=== PATIENT | male | born 1935 | race Caucasian/White ===

== ENCOUNTER 2020-11-03 07:08 | Observation (INO) | payer MEDICARE, OTHER ==
[~2020-11-03] VITALS: Ht 172.7 cm; Wt 61.2 kg
[2020-11-03 08:00] LABS: ABG BASE EXCESS 0.6 mmol/L (-2.0-3.0); ABG HCO3 24.6 mmol/L (21.0-28.0); ABG OXYGEN SATURATION 92.5 % (95.0-99.0); ABG PCO2 38 mmHg (35-48)
[2020-11-03 08:25] LABS: APPEARANCE,URINE Clear (CLEAR); BILIRUBIN,URINE Negative (NEGATIVE); COLOR,URINE Dark Yellow (YELLOW); GLUCOSE, URINE (UA) Negative (NEGATIVE); KETONES,URINE Negative (NEGATIVE); LEUKOCYTE ESTERASE ,URINE Negative (NEGATIVE); NITRATE,URINE Negative (NEGATIVE); OCCULT BLOOD,URINE Negative (NEGATIVE); PROTEIN,URINE 300 mg/dL (NEGATIVE)
[2020-11-03 08:30] LABS: BACTERIA,URINE Rare /HPF (None Seen); RBC,URINE 0-1 /HPF (0-1); SQUAMOUS EPITHELIAL CELL,UR Rare /HPF (0-2); WBC,URINE 0-1 /HPF (0-1)
[2020-11-03 08:42] LABS: BASOPHILS % (AUTO) 0.5 % (0.0-5.0); HEMATOCRIT 43.8 % (42-54); LYMPHOCYTES % (AUTO) 16.4 % (21.0-51.0); MEAN CORPUSCULAR HEMOGLOBIN 30.7 pg (27.0-33.0); MEAN CORPUSCULAR HGB CONC 33.1 g/dL (32.0-36.0); MEAN CORPUSCULAR VOLUME 92.8 fL (79-99); MONOCYTES % (AUTO) 5.7 % (3.0-13.0); NEUTROPHILS % (AUTO) 76.9 % (40.0-77.0); PLATELET COUNT (AUTO) 186 K/uL (130-400); RED BLOOD CELL COUNT(AUTO) 4.72 MIL/uL (4.50-6.20); RED CELL DISTRIBUTION WIDTH 13.2 % (11.0-15.5); WHITE BLOOD COUNT (AUTO) 4.2 K/uL (4.8-10.8)
[2020-11-03 08:54] LABS: INR 1.07 (0.85-1.15); PROTHROMBIN TIME 11.4 SEC (9.6-11.6)
[2020-11-03 08:55] LABS: BILIRUBIN,TOTAL 0.5 mg/dL (0.2-1.0); CREATININE 1.2 mg/dL (0.5-1.5); PARTIAL THROMBOPLASTIN TIME 32.2 SEC (26.3-35.5); POTASSIUM 3.7 mmol/L (3.5-5.1); TOTAL PROTEIN, SERUM 7.3 g/dL (6.0-8.3)
[2020-11-03] MEDS ORDERED: DEXAMETHASONE SOD PHOSPHATE 10MG/ML 1ML VIAL ONE (09:53)
[2020-11-03] MEDS ORDERED: SODIUM CHLORIDE 0.9% 50 ML IV ONE (09:54)
[2020-11-03] MEDS ORDERED: AZITHROMYCIN 500MG+NS 250ML 250 ML IV ONE (09:54)
[2020-11-03] MEDS ORDERED: CEFTRIAXONE SODIUM 1 GM ONE ×2 (09:54→20:58)
[2020-11-03 11:15] LABS: HEMOGLOBIN A1C 5.5 % (4.0-6.0)
[2020-11-03] MEDS ORDERED: ALBUTEROL INHALER 90MCG/INH IH ONE (11:23)
[2020-11-03] MEDS ORDERED: INSULIN HUMULIN R 100 UNIT/ML 3ML SQ SCH (11:30)
[2020-11-03] MEDS ORDERED: CEFTRIAXONE SODIUM 1 GM IVP SCH (20:00)
[2020-11-03] MEDS ORDERED: ENOXAPARIN SODIUM 40 MG/0.4 ML SYRINGE SQ ONE (20:58)
[2020-11-03] MEDS ORDERED: DOXYCYCLINE HYCLATE 100 MG TABLET PO ONE (20:58)
[2020-11-03] MEDS ORDERED: ENOXAPARIN SODIUM 30 MG/0.3 ML SQ SCH (21:00)
[2020-11-03] MEDS ORDERED: ENOXAPARIN SODIUM 0.5 MG/KG EACH SQ SCH (21:00)
[2020-11-03] MEDS ORDERED: DOXYCYCLINE HYCLATE 100 MG TABLET PO SCH (21:00)
[2020-11-04 05:20] LABS: HEMATOCRIT 40.9 % (42-54); MEAN CORPUSCULAR HEMOGLOBIN 30.6 pg (27.0-33.0); MEAN CORPUSCULAR HGB CONC 33.3 g/dL (32.0-36.0); MEAN CORPUSCULAR VOLUME 91.9 fL (79-99); MONOCYTES % (AUTO) 5.7 % (3.0-13.0); NEUTROPHILS % (AUTO) 79.8 % (40.0-77.0); PLATELET COUNT (AUTO) 219 K/uL (130-400); RED BLOOD CELL COUNT(AUTO) 4.45 MIL/uL (4.50-6.20); RED CELL DISTRIBUTION WIDTH 12.9 % (11.0-15.5); WHITE BLOOD COUNT (AUTO) 4.1 K/uL (4.8-10.8)
[2020-11-04 05:45] LABS: ALBUMIN 2.6 g/dL (3.5-5.0); BILIRUBIN,TOTAL 0.3 mg/dL (0.2-1.0); CREATININE 1.1 mg/dL (0.5-1.5); CRP QUANTITATIVE 83.6 mg/L (0.00-9.0); TOTAL PROTEIN, SERUM 6.7 g/dL (6.0-8.3)
[2020-11-04] MEDS ORDERED: ZINC SULFATE 220 CAPSULE PO SCH (09:00)
[2020-11-04] MEDS ORDERED: ASCORBIC ACID 500 MG TAB PO SCH (09:00)
[2020-11-04] MEDS ORDERED: DEXAMETHASONE SOD PHOSPHATE 4 MG/ML 1ML VIAL IVP SCH (09:00)
[2020-11-04] MEDS ORDERED: DOXYCYCLINE HYCLATE 100 MG TABLET PO ONE (09:17)
[2020-11-04] MEDS ORDERED: DEXAMETHASONE SOD PHOSPHATE 10MG/ML 1ML VIAL ONE (09:18)
[2020-11-04] MEDS ORDERED: ASCORBIC ACID 500 MG TAB ONE (09:19)
[2020-11-04] MEDS ORDERED: ZINC SULFATE 220 CAPSULE ONE (09:19)
[2020-11-04] MEDS ORDERED: CEFTRIAXONE SODIUM 1 GM ONE (09:20)
[2020-11-04] MEDS ORDERED: ENOXAPARIN SODIUM 30 MG/0.3 ML SQ ONE (09:20)
[2020-11-04] MEDS ORDERED: ENOXAPARIN SODIUM 40 MG/0.4 ML SYRINGE SQ SCH (20:00)
== END 2020-11-04 18:55 | disposition home or self-care (01) ==
LOC: EDH 07:08 → OBSVTOIN 10:58 → INTOOBSV 10:58 → EDHIP 10:58
PROVIDERS: ADMIT Internal Medicine; ATTEND Internal Medicine
DX: U07.1 COVID-19 (principal); J96.21 Acute and chronic respiratory failure with hypoxia; E87.2 Acidosis; D72.810 Lymphocytopenia; D68.59 Other primary thrombophilia; E43 Unspecified severe protein-calorie malnutrition; J98.11 Atelectasis; Z79.01 Long term (current) use of anticoagulants; Z79.899 Other long term (current) drug therapy
CPT/HCPCS: 36415 ×2; 36430; 36600; 71045; 80053 ×2; 81001; 82550; 82728 ×2; 82803; 82948; 83036; 83605 ×2; 83615 ×2; 84145; 84443; 84484; 85025 ×2; 85378 ×2; 85610; 85730; 86140 ×2; 86850; 86900; 86901; 86927; 87040 ×2; 87426; 93005; 99285; G0378 ×32; J0456; J0696 ×3; J1100 ×2; J1650 ×2; P9017